=== PATIENT | male | born 1955 | race Caucasian/White ===

== ENCOUNTER 2020-06-01 10:43 | Emergency (ER) | payer OTHER ==
[~2020-06-01] VITALS: Ht 190.5 cm; Wt 163.3 kg
[2020-06-01] MEDS ORDERED: MOMETASONE FURO15 G2 TOP (15:56)
[2020-06-01] MEDS ORDERED: AMOX1TAB5 PO (15:56)
[2020-06-01] MEDS ORDERED: KETO10TA2 PO (15:56)
== END 2020-06-01 16:23 | disposition home or self-care (01) ==
LOC: ER 10:43
DX: R21 Rash and other nonspecific skin eruption (principal); R60.0 Localized edema; M25.571 Pain in right ankle and joints of right foot; S93.491S Sprain of other ligament of right ankle, sequela; X50.0XXS Overexertion from strenuous movement or load, sequela; Z03.818 Encounter for observation for suspected exposure to other biological agents ruled out